=== PATIENT | male | born 1970 | race Caucasian/White ===

== ENCOUNTER 2018-06-03 13:39 | Emergency (ER) | payer SELFPAY ==
[2018-06-03 13:39] VITALS: BMI 28.3
[2018-06-03 13:54] VITALS: TEMP 98.3
--- NOTE | 2018-06-03 14:59 | C.PDOC ---
History Of Present Illness 47 y/o male pt presents to the ER by EMS for public intoxication. Pt was passed out outside in front of a business. Pt is able to answer questions but would not admit to how much he drank today. Pt has no complaints at this time. Time Seen by Provider: 06/03/18 14:13 Chief Complaint (Nursing): Substance Abuse History Per: Patient History/Exam Limitations: no limitations Onset/Duration Of Symptoms: Hrs Current Symptoms Are (Timing): Still Present Modifying Factor(s): Alcohol Past Medical History Reviewed: Historical Data, Nursing Documentation, Vital Signs Vital Signs: Last Vital Signs Temp 98.3 F 06/03/18 13:45 Pulse 80 06/03/18 13:45 Resp BP 111/72 06/03/18 13:45 Pulse Ox 94 L 06/03/18 13:45 Family History: States: Unknown Family Hx - Social History Hx Alcohol Use: Yes Hx Substance Use: No - Immunization History Hx Tetanus Toxoid Vaccination: No Hx Influenza Vaccination: No Review Of Systems Constitutional: Negative for: Fever, Chills Cardiovascular: Negative for: Chest Pain Respiratory: Negative for: Shortness of Breath Gastrointestinal: Negative for: Nausea, Vomiting, Abdominal Pain Genitourinary: Negative for: Dysuria, Hematuria Musculoskeletal: Negative for: Neck Pain Skin: Negative for: Rash Neurological: Negative for: Weakness, Numbness Psych: Negative for: Anxiety Physical Exam - Physical Exam Appears: Non-toxic, No Acute Distress, Other (intoxicated; slurred speech ) Skin: Warm, Dry Head: Normacephalic Oral Mucosa: Moist, Other (alcohol on breath ) Throat: Normal, No Erythema Neck: Normal ROM, Supple Cardiovascular: Rhythm Regular Respiratory: Normal Breath Sounds Gastrointestinal/Abdominal: Soft, No Tenderness Neurological/Psych: No Normal Speech (slurred speech ), Other (respond when being spoken to ) Gait: Unsteady ED Course And Treatment O2 Sat by Pulse Oximetry: 94 (RA) Pulse Ox Interpretation: Normal Medical Decision Making Medical Decision Making: Patient became increasingly more awake and alert throughout ED course. He was eventually able to ambulate without difficulty, and had no complaints. Stable for discharge home. Disposition - Disposition Disposition: HOME/ ROUTINE Disposition Time: 17:00 Condition: STABLE Additional Instructions: JASPAL HERNÁNDEZ, thank you for letting us take care of you today. Your provider was Shruthi Hannah MD and you were treated for SUBSTANCE ABUSE. The emergency medical care you received today was directed at your acute symptoms. If you were prescribed any medication, please fill it and take as directed. It may take several days for your symptoms to resolve. Return to the Emergency Department if your symptoms worsen, do not improve, or if you have any other problems. Please contact your doctor or call one of the physicians/clinics you have been referred to that are listed on the Patient Visit Information form that is included in your discharge packet. Bring any paperwork you were given at discharge with you along with any medications you are taking to your follow up visit. Our treatment cannot replace ongoing medical care by a primary care provider outside of the emergency department. Thank you for allowing the [facility] team to be part of your care today. If you had an X-Ray or CT scan: A Radiologist will review the ED reading if any change in treatment is needed we will contact you. If you had a blood, urine, or wound culture: It will take several days for the results, if any change in treatment is needed we will contact you. If you had an STI test: It will take 48 hours for the results. Please call after 1 week if you have not heard back. Instructions: Alcohol Abuse and Alcoholism (DC) Forms: [employer] (Moroccan) - Clinical Impression Clinical Impression: Alcohol abuse with intoxication - Scribe Statement The provider has reviewed the documentation as recorded by the Scribe Kristina Do Provider Attestation: All medical record entries made by the Scribe were at my direction and perso magy dictated by me. I have reviewed the chart and agree that the record accurately reflects my personal performance of the history, physical exam, medical decision making, and the department course for this patient. I have also personally directed, reviewed, and agree with the discharge instructions and disposition.
[2018-06-03 16:45] VITALS: BP 134/77; PULSE 93; RESP 20
[2018-06-03 17:03] VITALS: O2SAT 94
== END 2018-06-03 17:22 | disposition home or self-care (01) ==
LOC: C.ER 13:39
DX: F10.129 Alcohol abuse with intoxication, unspecified (principal)